=== PATIENT | male | born 1985 | race Caucasian/White ===

== ENCOUNTER 2023-07-01 10:15 | Emergency (ER) | payer SELFPAY ==
[~2023-07-01] VITALS: Ht 167.6 cm; Wt 73.0 kg
[2023-07-01 10:19] VITALS: O2SAT 94
[2023-07-01 10:54] LABS: BASOPHILS % 0.3 % (0.0-2.0); EOSINOPHILS % 0.6 % (0.0-5.0); HEMATOCRIT. 45.2 % (42.0-52.0); HEMOGLOBIN. 15.6 g/dL (14.0-18.0); LYMPHOCYTES % 10.6 % (20.0-50.0); MEAN CORPUSCULAR HEMOGLOBIN 30.7 pg (28.0-32.0); MEAN CORPUSCULAR HGB CONC 34.4 g/dL (31.0-37.0); MEAN CORPUSCULAR VOLUME 89.2 fL (80.0-94.0); NEUTROPHILS % 80.5 % (40.0-76.0); PLATELET 297 x1000/uL (130-400); RED BLOOD CELL COUNT 5.07 mill/uL (4.7-6.1); RED CELL DISTRIBUTION WIDTH 12.3 % (11.6-14.6); WHITE BLOOD COUNT 5.9 x1000/uL (4.5-11.0)
[2023-07-01 11:05] LABS: CHLORIDE 108 mEq/L (98-107); INDEX HEMOLYSI 1 (1-3); INDEX ICTERIC 1 (1-4); INDEX LIPEMIC 1 (1-3); POTASSIUM 3.4 mEq/L (3.5-5.1); SODIUM 136 mEq/L (136-145)
[2023-07-01 11:21] LABS: ACETAMINOPHEN <2 ug/mL ug/mL (10-30); ALANINE AMINOTRANSFERASE 101 IU/L (13-61); ALBUMIN 4.5 g/dL (3.4-5.0); ASPARTATE AMINOTRANSFERASE 97 IU/L (15-37); BILIRUBIN TOTAL 0.5 mg/dL (0.1-1.0); CALCIUM 9.8 mg/dL (8.5-10.1); CARBON DIOXIDE 25 mEq/L (21-32); CREATININE 0.7 mg/dL (0.6-1.3); ETHANOL BLOOD < 10 mg/dL (-10); GLUCOSE 128 mg/dL (70-105); PROTEIN TOTAL 8.1 g/dL (6.0-8.3); THYROID STIMULATING HORMONE 0.45 uIU/mL (0.36-3.74); UREA NITROGEN BLOOD 6 mg/dL (7-21)
[2023-07-01 11:26] LABS: CLARITY URINE CLEAR (CLEAR); COLOR URINE YELLOW (YELLOW); GLUCOSE URINE 1+ (NEGATIVE); KETONES URINE 3+ (NEGATIVE); LEUKOCYTE ESTERASE URINE NEGATIVE (NEGATIVE); NITRITE URINE NEGATIVE (NEGATIVE); OCCULT BLOOD URINE NEGATIVE (NEGATIVE); PH URINE 6.5 (4.5-8.0); PROTEIN URINE NEGATIVE (NEGATIVE); SPECIFIC GRAVITY URINE 1.008 (1.005-1.030)
[2023-07-01 11:54] LABS: *AMPHETAMINES SCREEN URINE NEGATIVE (NEGATIVE); *BARBITURATES SCREEN URINE NEGATIVE (NEGATIVE); *BENZODIAZEPINES SCREEN URINE NEGATIVE (NEGATIVE); *COCAINE SCREEN URINE NEGATIVE (NEGATIVE); CANNABINOID URINE SCREEN PRESUMTIVE POSITIVE (NEGATIVE); ECSTASY MDMA SCREEN URINE NEGATIVE (NEGATIVE); METHADONE URINE SCREEN NEGATIVE (NEGATIVE); OPIATES URINE SCREEN NEGATIVE (NEGATIVE); PHENCYCLIDINE URINE SCREEN NEGATIVE (NEGATIVE)
[2023-07-01 12:35] LABS: BACTERIA URINE NONE SEEN; RBC URINE 0-2 /hpf (0-2); SQUAMOUS EPITHELIAL CELL URINE NONE SEEN /lpf (RARE/1+); WBC URINE NONE SEEN /hpf (0-2)
[2023-07-01] MEDS ORDERED: POTASSIUM CHLORIDE 20MEQ TABLET SR PO ONE (14:45)
[2023-07-01] MEDS ORDERED: POTASSIUM CHLORIDE 20MEQ TABLET SR PO NR (19:45)
[2023-07-01] MEDS ORDERED: HALOPERIDOL LACTATE 5MG/ML VIAL IM ONE (22:00)
[2023-07-01] MEDS ORDERED: LORAZEPAM 0.5MG TABLET PO ONE (22:45)
[2023-07-02] MEDS ORDERED: POTASSIUM CHLORIDE 20MEQ/PACKET PO ONE (06:15)
[2023-07-02] MEDS ORDERED: HALOPERIDOL LACTATE 5MG/ML VIAL IM ONE (06:45)
[2023-07-02] MEDS ORDERED: LORAZEPAM 1MG TABLET PO ONE (06:45)
[2023-07-03] MEDS ORDERED: ARIPIPRAZOLE 5MG TABLET PO SCH (09:45)
[2023-07-03] MEDS ORDERED: FLUOXETINE HCL 10 MG CAPSULE PO SCH (09:45)
[2023-07-03 17:00] VITALS: BP 117/55; PULSE 81; RESP 18; TEMP 98
== END 2023-07-03 20:26 | disposition home or self-care (01) ==
LOC: ER 10:31
DX: R45.851 Suicidal ideations (principal); F15.10 Other stimulant abuse, uncomplicated; Z20.822 Contact with and (suspected) exposure to COVID-19
CPT/HCPCS: 80053; 80305; 81003; 80307; 80329; 80320; 84443; 85025; 36415; 96372 ×2; 99285; 87426; J1630 ×2; C9803; Z7610; G0480

== ENCOUNTER 2024-02-26 16:18 | Emergency (ER) | payer MEDICAID ==
[~2024-02-26] VITALS: Ht 172.7 cm; Wt 79.0 kg
[2024-02-26 16:34] VITALS: TEMP 98.3; O2SAT 100
[2024-02-26] MEDS ORDERED: DOXY100C5 MT (18:11)
[2024-02-26] MEDS: CEFTRIAXONE SODIUM 500MG VIAL IM ONE (18:31)
[2024-02-26 18:37] VITALS: BP 140/79; PULSE 92; RESP 16
[2024-02-28 19:11] LABS: CHLAMYDIA TRACHOMATIS NAA Negative (Negative); NEISSERIA GONORRHOEAE NAA Negative (Negative)
== END 2024-02-26 18:40 | disposition home or self-care (01) ==
LOC: ER 16:18
DX: A64 Unspecified sexually transmitted disease (principal); F41.9 Anxiety disorder, unspecified; F31.9 Bipolar disorder, unspecified; I10 Essential (primary) hypertension; F12.10 Cannabis abuse, uncomplicated
CPT/HCPCS: 87491; 87591; 86592; 86593; 96372; 99283; 86780; J0696; Z7610 ×2

== ENCOUNTER 2024-02-28 11:17 | Inpatient (IN) | payer MEDICAID, OTHER ==
[~2024-02-28] VITALS: Ht 172.7 cm; Wt 79.4 kg
[~2024-02-28 11:17] MED LIST: DOXY100C5 MT
[2024-02-28 11:44] VITALS: O2SAT 98
[2024-02-28 13:09] LABS: BASOPHILS % 0.4 % (0.0-2.0); EOSINOPHILS % 2.9 % (0.0-5.0); HEMATOCRIT. 43.3 % (42.0-52.0); HEMOGLOBIN. 14.9 g/dL (14.0-18.0); MEAN CORPUSCULAR HEMOGLOBIN 31.6 pg (28.0-32.0); MEAN CORPUSCULAR HGB CONC 34.4 g/dL (31.0-37.0); MEAN CORPUSCULAR VOLUME 91.9 fL (80.0-94.0); MONOCYTES % 8.6 % (2.0-8.0); NEUTROPHILS % 53.1 % (40.0-76.0); PLATELET 381 x1000/uL (130-400); RED BLOOD CELL COUNT 4.71 mill/uL (4.7-6.1); RED CELL DISTRIBUTION WIDTH 13.6 % (11.6-14.6); WHITE BLOOD COUNT 7.7 x1000/uL (4.5-11.0)
[2024-02-28 13:11] LABS: CLARITY URINE CLEAR (CLEAR); COLOR URINE YELLOW (YELLOW); GLUCOSE URINE NEGATIVE (NEGATIVE); KETONES URINE NEGATIVE (NEGATIVE); LEUKOCYTE ESTERASE URINE NEGATIVE (NEGATIVE); NITRITE URINE NEGATIVE (NEGATIVE); OCCULT BLOOD URINE NEGATIVE (NEGATIVE); PROTEIN URINE NEGATIVE (NEGATIVE); SPECIFIC GRAVITY URINE 1.006 (1.005-1.030); UROBILINOGEN URINE 0.2 E.U./dL (0.2-1.0)
[2024-02-28 13:27] LABS: UREA NITROGEN BLOOD 13 mg/dL (9-23)
[2024-02-28 13:29] LABS: ALANINE AMINOTRANSFERASE 44 IU/L (10-49); ALBUMIN 4.7 g/dL (3.2-4.8); ASPARTATE AMINOTRANSFERASE 45 IU/L (<34); BILIRUBIN TOTAL 0.3 mg/dL (0.1-1.0); PROTEIN TOTAL 7.5 g/dL (6.0-8.3)
[2024-02-28 13:45] LABS: INR 0.9; PROTHROMBIN TIME 10.4 sec (9.6-11.0)
[2024-02-28 13:46] LABS: CALCIUM 9.2 mg/dL (8.7-10.4); CARBON DIOXIDE 24 mEq/L (21-32); CHLORIDE 106 mEq/L (98-107); CREATININE 0.8 mg/dL (0.6-1.3); GLUCOSE 128 mg/dL (70-105); POTASSIUM 3.8 mEq/L (3.5-5.1); SODIUM 139 mEq/L (136-145)
[2024-02-28 15:06] LABS: CSF APPEARANCE CLEAR (CLEAR); CSF TOTAL VOLUME 8.5 mL
[2024-02-28 15:42] LABS: GLUCOSE CSF 68 mg/dL (41-75)
[2024-02-28 16:42] LABS: CSF WHITE BLOOD CELL 0 /cu mm (0-10)
[2024-02-28 18:33] VITALS: BP 134/73; PULSE 84; RESP 19; TEMP 98.8
[2024-02-28] MEDS ORDERED: ONDANSETRON HCL 4MG/2ML INJ IV PRN (18:45)
[2024-02-29] MEDS: PENICILLIN G POTASSIUM 5 MMU in DEXT 5% WATER 100 ML IV SCH (01:38)
[2024-02-29 02:50] VITALS: BP 101/71; PULSE 77; RESP 18; TEMP 98.1
[2024-02-29] MEDS: DOXYCYCLINE HYCLATE 100MG CAPSULE PO SCH (10:35)
[2024-02-29 20:00] VITALS: BP 90/63; PULSE 18; RESP 19; TEMP 96.8
[2024-03-01] VITALS: BP 115/79; PULSE 81; RESP 19; TEMP 96.8
[2024-03-01 04:00] VITALS: BP 114/76; PULSE 74; RESP 19; TEMP 97.7
[2024-03-01 08:00] VITALS: BP 115/81; PULSE 75; RESP 20; TEMP 97.9
[2024-03-01 12:00] VITALS: BP 111/66; PULSE 94; RESP 20; TEMP 98.1
[2024-03-01 16:00] VITALS: BP 123/74; PULSE 81; RESP 19; TEMP 98.1
[2024-03-01] MEDS: ACETAMINOPHEN 325MG TABLET PO PRN (17:07)
[2024-03-01 20:00] VITALS: BP 122/74; PULSE 74; RESP 18; TEMP 97.4
[2024-03-02 04:00] VITALS: BP 113/65; PULSE 68; RESP 20; TEMP 98.3
== END 2024-03-02 04:10 | disposition left against medical advice (07) | DRG 42 ==
LOC: ER 11:17 → 6EST 16:16 → EDBEDREQTM 16:20 → EDBEDREQ 16:20
PROVIDERS: ADMIT Internal Medicine; ATTEND Internal Medicine
PROC: 009U3ZZ Drainage of Spinal Canal, Percutaneous Approach (ICD-10-PCS; principal; 2024-02-28)
PROC: B01B1ZZ Fluoroscopy of Spinal Cord using Low Osmolar Contrast (ICD-10-PCS; 2024-02-28)
DX: A52.3 Neurosyphilis, unspecified (principal); E78.00 Pure hypercholesterolemia, unspecified; F31.9 Bipolar disorder, unspecified; I10 Essential (primary) hypertension; F41.9 Anxiety disorder, unspecified
CPT/HCPCS: 36415; 62328; 80053; 81003; 82945; 84145; 84157; 85025; 86592; 87070; 99285; J2540; J7060

== ENCOUNTER 2025-08-30 15:57 | Emergency (ER) | payer MEDICAID ==
[~2025-08-30] VITALS: Ht 172.7 cm; Wt 82.0 kg
[2025-08-30 16:30] VITALS: TEMP 37.1; O2SAT 100
[2025-08-30 19:38] VITALS: RESP 17
[2025-08-30] MEDS: IBUPROFEN 800MG TABLET PO ONE (19:38)
[2025-08-30] MEDS: METOCLOPRAMIDE HCL 10MG TABLET PO ONE (19:48)
[2025-08-30 23:35] VITALS: BP 99/60; PULSE 68; O2SAT 100
== END 2025-08-30 23:36 | disposition home or self-care (01) ==
LOC: ER 15:57
DX: S06.0X0A Concussion without loss of consciousness, initial encounter (principal); I10 Essential (primary) hypertension; F31.9 Bipolar disorder, unspecified; E78.00 Pure hypercholesterolemia, unspecified; F12.90 Cannabis use, unspecified, uncomplicated; Z79.899 Other long term (current) drug therapy; X58.XXXA Exposure to other specified factors, initial encounter; Y93.89 Activity, other specified; Y92.89 Other specified places as the place of occurrence of the external cause; Y99.8 Other external cause status
CPT/HCPCS: 99284; 70450; J8597